=== PATIENT | male | born 1930 | race Caucasian/White ===

== ENCOUNTER 2016-11-07 18:16 | Emergency (ER) | payer MEDICARE ==
[~2016-11-07 18:16] MED LIST: ACETAMINOPHEN PO; ASPIRIN81 MG PO; ATENOLOL-CHLORT1 TA3 PO; CEPHALEXIN500 M1 PO; CERTAGEN PO; CIPRO PO; CLEOCIN PO; COREG3.125 MG PO; COREG6.25 MG PO; COUMADIN PO; HYDROCHLOROTHIA25 MG PO; KEFLEX500 MG PO; NORCO 5/325 TAB1 TAB PO; PREVACID PO; PYRIDIUM PO; TENORETIC 50 TA1 TAB PO; TENORETIC PO; ULTRAM PO; VASOTEC PO; VASOTEC20 MG PO; ZYLOPRIM100 MG PO
[2016-11-07 19:50] LABS: BASOPHIL% 0.3 % (0-2.5); EOSINOPHIL% 0.4 % (0.0-7.0); HEMATOCRIT 29.1 % (38.0-50.0); HEMOGLOBIN 10.4 gm/dL (13.0-16.0); LYMPHOCYTE# 0.5 X10e3 (1.0-3.5); MEAN CELL VOLUME 112.1 FL (83-96); MEAN CORPUSCULAR HEMOGLOBIN 40.1 PG (28-34); MEAN CORPUSCULAR HGB CONC 35.8 g/dL (30-36); MEAN PLATELET VOLUME 9.1 FL (6.5-11.5); MONOCYTE# 0.8 X10e3 (0-1.0); MONOCYTE% 13.8 % (3.0-12.0); NEUTROPHIL# 4.6 X10e3 (1.5-7.1); NEUTROPHIL% 76.5 % (40-75); PLATELET COUNT 232 X10e3 (140-420); RED BLOOD COUNT 2.59 X10e (3.90-5.60); RED CELL DISTRIBUTION WIDTH 18.3 % (11.0-15.5)
[2016-11-07 19:53] LABS: DIFF IND NO
[2016-11-07 20:07] LABS: BUN/CREATININE RATIO 26.66; CALCIUM SERUM 9.3 mg/dL (8.4-10.2); CREATININE SERUM 0.9 mg/dL (0.6-1.4); GLOM FILT RATE Estimated 76.5 mL/min (>60); POTASSIUM 3.6 mmol/L (3.5-5.1)
== END 2016-11-07 20:48 | disposition home or self-care (01) ==
LOC: SED 18:16
PROVIDERS: Physician Assistant
DX: S61.452A Open bite of left hand, initial encounter (principal); L03.114 Cellulitis of left upper limb; R11.2 Nausea with vomiting, unspecified; I11.0 Hypertensive heart disease with heart failure; I50.9 Heart failure, unspecified; M10.9 Gout, unspecified; D64.9 Anemia, unspecified; W55.01XA Bitten by cat, initial encounter; Y92.009 Unspecified place in unspecified non-institutional (private) residence as the place of occurrence of the external cause
CPT/HCPCS: 36415; 80048; 85025; 87040; 96365; 99283

== ENCOUNTER 2016-11-11 20:31 | Emergency (ER) | payer MEDICARE ==
[~2016-11-11] VITALS: Ht 177.8 cm; Wt 81.6 kg
== END 2016-11-11 22:10 | disposition left against medical advice (07) ==
LOC: CFTX 20:31 → CED 20:31 → CFTX 21:45
DX: L03.114 Cellulitis of left upper limb (principal); L02.512 Cutaneous abscess of left hand; I11.0 Hypertensive heart disease with heart failure; I50.9 Heart failure, unspecified; Z79.82 Long term (current) use of aspirin; Z79.899 Other long term (current) drug therapy; W55.01XA Bitten by cat, initial encounter; Y92.009 Unspecified place in unspecified non-institutional (private) residence as the place of occurrence of the external cause
CPT/HCPCS: 99283

== ENCOUNTER 2016-11-16 15:05 | Emergency (ER) | payer MEDICARE ==
[~2016-11-16] VITALS: Ht 182.9 cm; Wt 80.7 kg
--- NOTE | ~2016-11-16 | CT105 ---
[facility] Service of [facility] RADIOLOGY TEXT RESULTS PATIENT: TRI MORALES LOCATION: [facility] : [birth year] UNIT #: [id number] AGE: [address]: Andriy Benitez DO SEX: M ORDER DR: [id number] [facility] [address] [place], [place] [address] [id number] E MR#: [id number] Acc #: [id number] NAME: TRI MORALESN : [id number] SEX: M STUDY DATE/TIME: 11/16/2016 18:42 UNIT: [facility] ROOM: STUDY DESCRIPTION: CT Pelvis W Cont Attending Physician: Andriy Benitez D.O. Ordering Physician: Alicja Tejada M.D. Primary Care Physician: Bozena Cohn M.D. MEDICAL IMAGING REPORT This report is preliminary unless electronic signature is present EXAM Pelvic CT with contrast, 11/16/2016 INDICATION 85-year-old male with rectal pain for a week. Sharp pain feels like sitting on pins. History of cholecystectomy and double inguinal hernia repairs. TECHNIQUE Contrast enhanced CT of the pelvis was performed. This CT exam was performed with one or more of the following radiation dose reduction techniques: automatic exposure control, adjustment of mA and/or kV according to patient size, and iterative reconstruction. COMPARISON We have no comparisons. FINDINGS CT PELVIS: Included kidneys are unremarkable. Aorta demonstrates atherosclerotic change but no aneurysm. There is atherosclerotic change of the iliac arteries bilaterally. The bladder is unremarkable. The prostate is enlarged and heterogeneous. It measures 5.3 x 3.8 cm. The bladder is distended without evidence of wall thickening. Suggest correlation with PSA levels and physical exam findings with respect to prostatic dimensions. There are tiny inguinal hernias that contain fat, left slightly greater than right. There is extensive diverticulosis of the descending and sigmoid colon within the field of view. No evidence of bowel obstruction and the appendix is normal. [facility] of [facility] RADIOLOGY TEXT RESULTS PATIENT: TRI MORALES LOCATION: [facility] : [birth year] UNIT #: [id number] AGE: [address]: Andriy Benitez DO SEX: M ORDER DR: There is wall thickening and stranding of the rectum and perirectal fat suggestive of proctitis. No drainable fluid collection or free fluid in the pelvis. There is no pelvic or inguinal adenopathy. No suspicious bone lesion. IMPRESSION 1. There is thickening of the rectal wall and stranding of the perirectal fat with imaging features most characteristic of proctitis. No drainable fluid collection or free fluid in the pelvis. 2. Prostatomegaly which should be correlated with PSA levels and physical exam findings. 3. Diverticulosis. 4. The appendix is normal. Dictated by... Aries Castorena M.D. THIS IS AN ELECTRONICALLY VERIFIED REPORT Aries Castorena M.D. at 11/17/2016 11:04 PM Alex TD: 11/17/2016 08:31 JOB #: [id number] MEDICAL IMAGING REPORT Page 1 of 1 COPY
[2016-11-16 17:44] LABS: BASOPHIL% 1.3 % (0-2.5); EOSINOPHIL% 0.5 % (0.0-7.0); HEMATOCRIT 30.9 % (38.0-50.0); HEMOGLOBIN 11.1 gm/dL (13.0-16.0); LYMPHOCYTE# 0.7 X10e3 (1.0-3.5); LYMPHOCYTE% 23.7 % (17.0-45.0); MEAN CELL VOLUME 110.3 FL (83-96); MEAN CORPUSCULAR HEMOGLOBIN 39.5 PG (28-34); MEAN CORPUSCULAR HGB CONC 35.8 g/dL (30-36); MEAN PLATELET VOLUME 8.8 FL (6.5-11.5); MONOCYTE# 0.4 X10e3 (0-1.0); MONOCYTE% 13.5 % (3.0-12.0); NEUTROPHIL# 1.9 X10e3 (1.5-7.1); PLATELET COUNT 376 X10e3 (140-420); RED CELL DISTRIBUTION WIDTH 17.5 % (11.0-15.5); WHITE BLOOD COUNT 3.1 X10e3 (4.0-10.5)
[2016-11-16 17:46] LABS: DIFF IND YES
[2016-11-16 18:00] LABS: PARTIAL THROMBOPLASTIN TIME 24.4 SECONDS (23.5-31.3); PROTHROMBIN TIME (PATIENT) 11.1 SECONDS (10.0-11.7)
[2016-11-16 18:03] LABS: ALBUMIN SERUM 3.8 g/dL (3.5-5.0); BILIRUBIN, DIRECT 0.2 mg/dL (0.0-0.2); BILIRUBIN,INDIRECT 0.8 mg/dL (0.0-0.9); BUN/CREATININE RATIO 24.44; CALCIUM SERUM 9.9 mg/dL (8.4-10.2); CREATININE SERUM 0.9 mg/dL (0.6-1.4); GLOM FILT RATE Estimated 76.5 mL/min (>60); POTASSIUM 3.7 mmol/L (3.5-5.1); PROTEIN TOTAL SERUM 6.6 g/dL (6.0-8.3)
[2016-11-16 18:26] LABS: URINE SOURCE CLEAN CATCH
[2016-11-16 18:27] LABS: ANISOCYTOSIS MOD; PLATELET ESTIMATE NORMAL (NORMAL); POIKILOCYTOSIS SL
[2016-11-16 18:38] LABS: URINE APPEARANCE CLEAR; URINE BILIRUBIN NEG (NEG); URINE BLOOD 1+ (NEG); URINE COLOR YELLOW; URINE GLUCOSE NEG (NEG); URINE KETONE TRACE (NEG); URINE LEUKOCYTE ESTERASE NEG (NEG); URINE NITRATE NEG (NEG); URINE PH 8.5 (5-8); URINE PROTEIN NEG (NEG); URINE SPECIFIC GRAVITY 1.013 (1.003-1.035)
[2016-11-16 18:42] LABS: URINE BACTERIA AUWI NEG (NEGATIVE); URINE SQUAMOUS EPITHELIAL CELL NONE SEEN /[HPF]; UWBCS1 AUWI 0-2 (0-5)
[2016-11-16 18:45] LABS: CULTURE INDICATED? NO
== END 2016-11-16 21:02 | disposition left against medical advice (07) ==
LOC: CED 15:05
PROVIDERS: Emergency Medicine
DX: K62.89 Other specified diseases of anus and rectum (principal); I11.0 Hypertensive heart disease with heart failure; I50.9 Heart failure, unspecified; Z90.49 Acquired absence of other specified parts of digestive tract; Z98.890 Other specified postprocedural states; Z79.899 Other long term (current) drug therapy
CPT/HCPCS: 36415; 72193; 80048; 80076; 81003; 85025; 85610; 85730; 96374; 96375; 99284; J2270; J2405; Q9967